=== PATIENT | male | born 1995 | race Caucasian/White ===

== ENCOUNTER 2017-09-07 23:53 | Emergency (ER) | payer MEDICAID ==
[~2017-09-07] VITALS: Ht 170.2 cm; Wt 77.1 kg
[2017-09-08 00:10] VITALS: BP 139/75
--- NOTE | 2017-09-08 00:43 | NUR ---
ER MD DR REYES AT BEDSIDE
--- NOTE | 2017-09-08 00:50 | NUR ---
21Y/M PRESENTS TO ER C/O LEFT EAR SWELLING FOR 5 DAYS. PT WAS SEEN AT [facility] 5 DAYS AGO FOR I&D AND STATES SWELLING IS GETTING WORSE. PT DENIES PAIN, FEVER, COUGH, N/V. SKIN TO LEFT EAR IS DRY, WARM, AND INTACT, NO DRAINAGE NOTED AT THIS TIME. PT STATES HE FEELS "A LITTLE DIZZY" BUT IS "NERVOUS". AA&O X4, ACTING APPROPRIATE. NO PMH, NKA
--- NOTE | 2017-09-08 00:55 | NUR ---
PT MOVED TO ER BED 3
[2017-09-08 01:55] VITALS: BP 127/80
--- NOTE | 2017-09-08 01:55 | NUR ---
Patient discharged with v/s stable. Written and verbal after care instructions given and explained. Patient verbalized understanding. Ambulatory with steady gait. All questions addressed prior to discharge. Advised to follow up with PMD.
== END 2017-09-08 01:55 | disposition home or self-care (01) ==
LOC: MED 23:53
DX: M95.12 Cauliflower ear, left ear (principal); R03.0 Elevated blood-pressure reading, without diagnosis of hypertension
CPT/HCPCS: 69000; 99284

== ENCOUNTER 2017-09-21 11:44 | Emergency (ER) | payer MEDICAID ==
[~2017-09-21] VITALS: Ht 170.2 cm; Wt 77.1 kg
[2017-09-21 11:52] VITALS: BP 147/84
--- NOTE | 2017-09-21 11:55 | NUR ---
PT BACK TO [facility] WITH STEADY GAIT
--- NOTE | 2017-09-21 12:10 | NUR ---
21m bib girlfriend with c/o 10/30 "sharp" constant generalized abd pain x yesterday after eating "raw fish". Patient report of n/v/d. Patient denies any blood in emesis or fevers. Patient also report of dizziness. Pt is aox4. GCS=15. Skin is cool/pale/dry. RR are even and unlabored. No acute distress noted. Awaiting er md hogan. Will continue to monitor.
[2017-09-21] MEDS ORDERED: NACL 0.9% 1,000 ML IV SCH (12:29)
[2017-09-21] MEDS ORDERED: NACL 0.9% 1,000 ML IV ONE (12:29)
[2017-09-21] MEDS ORDERED: diphenhydrAMINE 50 MG/ML VIAL IVP ONE (12:30)
[2017-09-21] MEDS ORDERED: PROMETHAZINE 25 MG/ML VIAL IM ONE (12:30)
[2017-09-21] MEDS ORDERED: METOCLOPRAMIDE 10 MG/2 ML INJ VIAL IVP ONE (12:30)
[2017-09-21] MEDS ORDERED: ONDANSETRON 4 MG/2 ML VIAL IVP ONE (12:30)
[2017-09-21] MEDS ORDERED: FAMOTIDINE 20 MG/2 ML VIAL IVP ONE (12:30)
[2017-09-21 12:51] LABS: BASOPHILS % (AUTO) 0.6 % (0.0-2.0); EOSINOPHILS % (AUTO) 0.6 % (0.0-4.0); HEMATOCRIT 42.7 % (36-52); HEMOGLOBIN 14.9 g/dL (12.0-18.0); LYMPHOCYTES # (AUTO) 1.4 K/uL (2.0-11.5); LYMPHOCYTES % (AUTO) 19.1 % (20.5-51.1); MEAN CORPUSCULAR HEMOGLOBIN 29 pg (27-31); MEAN CORPUSCULAR HGB CONC 35 g/dL (33-37); MONOCYTES # (AUTO) 0.5 K/uL (0.8-1.0); MONOCYTES % (AUTO) 6.3 % (1.7-9.3); NEUTROPHILS # (AUTO) 5.4 K/uL (1.8-7.7); NEUTROPHILS % (AUTO) 73.4 % (42.2-75.2); PLATELET COUNT (AUTO) 223 K/uL (140-450); RED BLOOD CELL COUNT(AUTO) 5.14 MIL/uL (4.20-6.10); RED CELL DISTRIBUTION WIDTH 13.9 % (11.6-13.7); WHITE BLOOD COUNT (AUTO) 7.3 K/uL (4.8-10.8)
[2017-09-21 13:05] LABS: ANION GAP 12.3 (8-16); CARBON DIOXIDE 29.6 mmol/L (21-32); POTASSIUM 3.9 mmol/L (3.5-5.1)
[2017-09-21 13:08] LABS: ALBUMIN 4.2 g/dL (3.4-5.0); TOTAL BILIRUBIN 0.7 mg/dL (0.0-1.0)
--- NOTE | 2017-09-21 14:00 | NUR ---
iv fluids infusing without difficultly. patient with no complaints. will continue to monitor.
[2017-09-21 14:27] LABS: APPEARANCE,URINE CLEAR (CLEAR); BILIRUBIN,URINE NEGATIVE (NEGATIVE); BLOOD, URINE NEGATIVE (NEGATIVE); COLOR,URINE YELLOW (YELLOW); LEUKOCYTE ESTERASE ,URINE NEGATIVE (NEGATIVE); NITRITE, URINE NEGATIVE (NEGATIVE); PH,URINE 7.5 (5.0-9.0); UGLUCOSE NEGATIVE (NEGATIVE)
[2017-09-21 15:42] VITALS: BP 136/80
--- NOTE | 2017-09-21 15:42 | NUR ---
Patient discharged with v/s stable. Written and verbal after care instructions given and explained. Patient alert, oriented and verbalized understanding of instructions. Ambulatory with steady gait. All questions addressed prior to discharge. ID band removed. Patient advised to follow up with PMD. Rx of Prilosec and Promethazine given. Patient educated on indication of medication including possible reaction and side effects. Opportunity to ask questions provided and answered.
== END 2017-09-21 15:42 | disposition home or self-care (01) ==
LOC: MED 11:44
DX: T62.8X1A Toxic effect of other specified noxious substances eaten as food, accidental (unintentional), initial encounter (principal); Y92.89 Other specified places as the place of occurrence of the external cause
CPT/HCPCS: 36415; 80053; 81003; 82150; 83690; 85025; 96361; 96374; 96375; 99284; J1200; J2405; J2550; J2765; J3490; J7030